=== PATIENT | female | born 1970 | race Caucasian/White ===

== ENCOUNTER 2016-05-25 18:31 | Emergency (ER) | payer MEDICAID, OTHER ==
[~2016-05-25] VITALS: Ht 157.5 cm; Wt 88.9 kg
[2016-05-25 18:42] VITALS: BP 140/83
[2016-05-25] MEDS ORDERED: IBUPROFEN 600 MG TAB PO ONE (20:30)
== END 2016-05-25 20:48 | disposition home or self-care (01) ==
LOC: ER 18:48
DX: L03.012 Cellulitis of left finger (principal); Z59.0 Homelessness; Z88.0 Allergy status to penicillin; Z88.6 Allergy status to analgesic agent